=== PATIENT | female | born 1960 | race African-American/Black ===

== ENCOUNTER 2020-01-01 07:11 | Observation (INO) | payer MEDICARE ==
[~2020-01-01] VITALS: Ht 154.9 cm; Wt 78.9 kg
[~2020-01-01 07:11] MED LIST: ASPIRIN81 MG PO; LOSARTAN POTAS100 MG PO; METOPROLOL SUCC50 MG PO; MOBIC7.5 MG PO
[2020-01-01] MEDS ORDERED: DEXAMETHASONE SOD PHOS 10 MG/1 ML VIAL ONE (07:43)
[2020-01-01] MEDS ORDERED: CELECOXIB 200 MG CAP ONE (07:43)
[2020-01-01] MEDS ORDERED: CEFAZOLIN SOD 1 GM/NS 50ML 100 ML IV ONE (07:44)
[2020-01-01] MEDS ORDERED: GABAPENTIN 300 MG CAP ONE (07:44)
[2020-01-01] MEDS ORDERED: ROPIVACAINE 246.25 MG, EPINEPHRINE HCL 1:1000 1ML 0.5 MG, CLONIDINE HCL 0.08 MG, KETORO... INJ ONE ×5 (08:00)
[2020-01-01] MEDS ORDERED: TRANEXAMIC ACID 1,000 MG/10 ML ML ONE (08:26)
[2020-01-01] MEDS ORDERED: SODIUM CHLORIDE 0.9% 500ML 500 ML ONE (08:26)
[2020-01-01] MEDS ORDERED: VANCOMYCIN HCL 1,000 MG ONE (08:26)
[2020-01-01] MEDS ORDERED: HYDROCODONE/APAP 7.5MG-325MG 1 EA TAB PO PRN (10:30)
[2020-01-01] MEDS ORDERED: DIPHENHYDRAMINE HCL INJ 50 MG/ML VIAL IV PRN (10:30)
[2020-01-01] MEDS ORDERED: ACETAMINOPHEN 650 MG SUPP PR PRN (10:30)
[2020-01-01] MEDS ORDERED: KETOROLAC TROMETHAMINE 30 MG/ML VIAL IV PRN (10:30)
[2020-01-01] MEDS ORDERED: DOCUSATE SODIUM 100 MG CAP PO PRN (10:30)
--- NOTE | 2020-01-01 10:55 | Operative Report ---
DATE OF PROCEDURE: 01/01/2020 SURGEON: Pedrito Garcia MD ELECTRON BE[employer] PH[employer] MASK MAKER: Oumar Woodruff PA-C PREOPERATIVE DIAGNOSIS: Osteoarthritis, right knee. POSTOPERATIVE DIAGNOSIS: Osteoarthritis, right knee. PROCEDURE: Right total knee arthroplasty. INDICATIONS: The patient is a 59-year-old lady, who has end-stage arthritis of her right knee. She has failed conservative management and would like to proceed with a right total knee replacement. The risks and benefits of the procedure have been explained. All of her questions have been answered. She states she understands and wishes to proceed. PROCEDURE IN DETAIL: The patient was brought to the operating room and placed under general anesthetic. She received prophylactic antibiotics, tranexamic acid, and a regional block in the holding area. Her right lower extremity was prepped and draped in a sterile manner. A preoperative time-out was performed. The extremity was exsanguinated and a proximal tourniquet was inflated to 300 mmHg. An anterior incision with a medial parapatellar arthrotomy was performed. Clear synovial fluid was removed from the joint. Soft tissue releases were performed to bring the knee up into flexion with the patella everted. The cruciate ligaments, marginal osteophytes and meniscal remnants were removed. She had significant pronounced medial compartment osteophytosis. The patient also was noted preoperatively to have a fairly lax knee. We attempted to resect this little bone as possible. An extramedullary cutting guide was used to resect the proximal tibia. The tibial base plate was a size D. The central fin punch was drilled and impacted and attention was directed towards the distal femur. An intramedullary cutting guide was used to resect the distal femur in 5 degrees of valgus and rotation referencing off a combination of landmarks including Whitesides line, the epicondylar axis, and the posterior condyles. The femoral component was a size 6. The anterior and posterior cuts were made. The significant posterior osteophytes were carefully removed. Trial reductions were performed. Even with minimal resection, the knee remained quite loose. I ended up using a 12 mm medial congruent tibial base plate. This provided appropriate soft tissue balancing in full extension and 90 degrees of flexion. The patella was resurfaced with a 29 mm patellar button. The thickness was checked before and after and was right around 19 mm. Patellar tracking was concentric. The trial implants were then all removed. A 100 mL premixed pericapsular ALMA ROSA injection was placed into the surrounding soft tissue. The knee was thoroughly irrigated with a shower tip pulsatile lavage. Bone cuts had been irrigated with a spray mixture of diluted polymyxin and vancomycin spray. The components were cemented into place using a single mix of high viscosity Biomet cement preloaded with antibiotics. Care was taken to remove all extravasated cement. The wound was further irrigated while the cement cured. The arthrotomy was then carefully closed with interrupted #1 Ethibond. The knee was put through flexion and extension to ensure a secure closure. The skin was carefully closed with subcuticular Vicryl and dick. Her skin was thin. A sterile Aquacel bandage was applied. An Sukhwinder wrap was applied. The patient was extubated and transported to the recovery room in stable condition. Blood loss was minimal. All needle and sponge counts were correct. Pedrito Garcia MD DR/NIK /[id number]
--- NOTE | 2020-01-01 11:03 | Diagnostic Imaging Report ---
X-ray right knee History: Postoperative Comparison: None Findings: Right knee 2 views showing postoperative changes of tibiofemoral total knee arthroplasty with the orthopedic hardware in near anatomic alignment. Other postoperative changes such as surgical dick, soft tissue swelling and soft tissue air also noted. Impression:. Signed by: Camilo Hampton MD on 01/01/2020 10:59 AM
--- NOTE | 2020-01-01 11:33 | NUR ---
Patient arrived on the floor via stretcher from PACU. Pt groggy from sedation but easy to arouse. Pt assisted with the transfer from stretcher to bed. Bed in its lowest position. Pt denies pain 0/10. R knee dressing clean, dry, and intact.
[2020-01-01 11:35] VITALS: BP 148/87
[2020-01-01 11:48] VITALS: BP 148/87
[2020-01-01] MEDS ORDERED: FENTANYL CITRATE/PF 100MCG/2 ML INJ ONE (11:49)
[2020-01-01] MEDS ORDERED: MIDAZOLAM HCL 2 MG/2 ML VIAL ONE (11:49)
[2020-01-01 12:17] VITALS: BP 148/87
[2020-01-01 12:22] LABS: BASOPHILS % 0.2 % (0.0-1.0); HEMATOCRIT 35.5 % (34.2-44.1); HEMOGLOBIN 10.6 g/dL (12.0-16.0); LYMPHOCYTES # (AUTO) 0.8 (1.0-3.2); LYMPHOCYTES % 8.4 % (18.0-39.1); MEAN CORPUSCULAR HEMOGLOBIN 22.7 pg (28-32); MEAN CORPUSCULAR HGB CONC 29.9 g/dL (31-35); MEAN CORPUSCULAR VOLUME 76.2 fL (81-99); MONOCYTES # (AUTO) 0.1 (0.2-0.8); MONOCYTES % 1.1 % (4.4-11.3); NEUTROPHILS # (AUTO) 8.2 (2.1-6.9); NEUTROPHILS % 89.8 % (38.7-80.0); PLATELET COUNT 201 x10e3/uL (140-360); RED BLOOD COUNT 4.66 x10e6/uL (3.6-5.1); RED CELL DISTRIBUTION WIDTH 17.2 % (11.7-14.4)
[2020-01-01] MEDS ORDERED: EPHEDRINE SULFATE INJ 50 MG/ML VIAL ONE (12:34)
[2020-01-01] MEDS ORDERED: LIDOCAINE HCL 2% LOCAL INJ 5 ML SDV VIAL INJ ONE (12:34)
[2020-01-01] MEDS ORDERED: ONDANSETRON HCL INJ 2MG/ML 2ML 2 MG/ML VIAL ONE (12:34)
[2020-01-01] MEDS ORDERED: DEXAMETHASONE SOD PHOS INJ 4 MG/ML VIAL ONE (12:34)
[2020-01-01] MEDS ORDERED: SEVOFLURANE INHAL SOLN 250 ML PEN BTL ONE (12:34)
[2020-01-01] MEDS ORDERED: PROPOFOL IV EMULSION 10 MG/ML 20 ML VIAL ONE (12:34)
[2020-01-01 12:40] LABS: BLOOD UREA NITROGEN 11 mg/dL (7-26); BUN/CREATININE RATIO 15 (6-25); CALCIUM 8.4 mg/dL (8.4-10.2); CARBON DIOXIDE 26 mmol/L (22-29); CHLORIDE 105 mmol/L (98-107); CREATININE, SERUM 0.75 mg/dL (0.57-1.11); EST GLOMERULAR FILTRATION RATE > 60 ML/MIN (60-); GLUCOSE 190 mg/dL (74-118); SODIUM 140 mmol/L (136-145)
[2020-01-01] MEDS: SODIUM CHLORIDE 0.9% 1000ML 1,000 ML IV SCH ×2 (12:42→20:40)
[2020-01-01] MEDS ORDERED: ACETAMINOPHEN 1000 MG/100 ML IV PRN (14:00)
[2020-01-01] MEDS: ONDANSETRON HCL INJ 2MG/ML 2ML 2 MG/ML VIAL IV PRN ×2 (15:07→20:40)
--- NOTE | 2020-01-01 15:25 | NUR ---
DR HAWKINS OFFICE PREARRANGED FOLLOWING DISCHARGE PLAN OF: [place] [id number] [place] [address] [id number] [facility] WITH [facility] CONFIRMED WITH APRIL [phone] SAMANTHA 3 IN ONE COMMODE AND CPM PROVIDED BY [facility] [phone] I PROVIDED ROLLING WALKER WITH WHEELS FOR DISCHARGE OBTAINED SIGNATURES AND WILL FILE IN PACU
[2020-01-01 16:00] VITALS: BP 139/88
[2020-01-01] MEDS: CELECOXIB 100 MG CAP PO SCH (17:05)
[2020-01-01] MEDS: CEFAZOLIN SOD 1 GM/NS 50ML 50 ML IV SCH (17:05)
[2020-01-01] MEDS: ASPIRIN 325 MG TAB PO SCH (17:05)
[2020-01-01] MEDS: HYDROCODONE/APAP 5MG-325MG TAB PO PRN ×2 (17:07→20:40)
[2020-01-01] MEDS ORDERED: ROPIVACAINE 0.5% 5 MG/ML 30 ML SDV ONE (17:29)
--- NOTE | 2020-01-01 19:00 | NUR ---
Report given to on coming nurse. Pt lying in bed, semi-fowlers position, and no apparent distress. Pt denies pain 0/10. Bed in its lowest position. CPM machine operating at 50.
[2020-01-01 20:00] VITALS: BP 112/72
[2020-01-01 21:00] VITALS: BP 112/72
[2020-01-01] MEDS ORDERED: ZOLPIDEM TARTRATE 5 MG TAB PO PRN (21:00)
[2020-01-02] VITALS: BP 107/69
[2020-01-02] MEDS: CEFAZOLIN SOD 1 GM/NS 50ML 50 ML IV SCH ×2 (00:27→09:04)
[2020-01-02 00:52] VITALS: BP 112/72
[2020-01-02 04:00] VITALS: BP 118/73
[2020-01-02] MEDS: HYDROCODONE/APAP 5MG-325MG TAB PO PRN ×3 (04:50→13:08)
--- NOTE | 2020-01-02 05:11 | NUR ---
Pt had cpm back on at this time, tolerating well. pain med given prior to cpm. call light within reach. bed in low position and locked. no needs at this time.
--- NOTE | 2020-01-02 06:03 | Consultation ---
DATE OF CONSULTATION: 01/02/2020 REASON FOR CONSULTATION: Postop medical management. HISTORY OF PRESENT ILLNESS: The patient is a 59-year-old lady, who is status post right total knee arthroplasty, who is doing well postoperatively with some complaints of right knee pain, but denies any chest pain, fever, chills, nausea, vomiting, headache, shortness of breath, or dizziness on review of systems. PAST MEDICAL HISTORY: Significant for arthritis, history of breast cancer, hypertension, hyperlipidemia. MEDICATIONS: See MAR. ALLERGIES: CODEINE AND MORPHINE. SOCIAL HISTORY: She is a retired, single, nonsmoker, nondrinker. FAMILY HISTORY: Hypertension. PHYSICAL EXAMINATION: VITAL SIGNS: Temperature 97.5, pulse 87, blood pressure 112/72, sats 100% on room air. GENERAL: In no apparent distress, lying in bed. NECK: Supple. No lymphadenopathy. CARDIOVASCULAR: Regular rate and rhythm. LUNGS: Clear to auscultation bilaterally. ABDOMEN: Good bowel sounds. Soft, nontender. EXTREMITIES: No clubbing, cyanosis. NEUROLOGIC: Nonfocal. Right knee is bandaged with no seepage. ASSESSMENT AND PLAN: 1. Right knee pain. Continue with postoperative care and continue with pain management and start physical therapy. 2. Elevated sugars. The patient states no history of diabetes. We will continue to monitor. 3. Hypertension. We will restart her home medicines. Monitor her blood pressure. 4. Anemia. We will check a CBC. 5. Hyperlipidemia. The patient is to resume her cholesterol medicine upon discharge. Please see hospital chart for full details. MD GHAZALA Herrera/NIK /[id number]
[2020-01-02] MEDS: SODIUM CHLORIDE 0.9% 1000ML 1,000 ML IV SCH (06:31)
[2020-01-02 06:52] LABS: HEMATOCRIT 31.3 % (34.2-44.1); HEMOGLOBIN 9.6 g/dL (12.0-16.0)
--- NOTE | 2020-01-02 07:00 | NUR ---
Received report from off going nurse. Pt lying in bed and is on CMP. Pt denies pain 0/10. Bed in lowest position.
[2020-01-02 07:58] VITALS: BP 143/90
[2020-01-02 08:20] VITALS: BP 143/90
[2020-01-02] MEDS ORDERED: METOPROLOL SUCCINATE 50 MG TAB XL PO SCH (09:00)
[2020-01-02] MEDS ORDERED: LOSARTAN POTASSIUM 25 MG TAB PO SCH (09:00)
[2020-01-02] MEDS: ASPIRIN 325 MG TAB PO SCH (09:01)
[2020-01-02] MEDS: CELECOXIB 100 MG CAP PO SCH (09:01)
[2020-01-02] MEDS: ONDANSETRON HCL INJ 2MG/ML 2ML 2 MG/ML VIAL IV PRN (09:11)
[2020-01-02 11:45] VITALS: BP 145/83
[2020-01-02] MEDS ORDERED: ONDANSETRON HCL 4 MG ORAL DISINTEGRATING TAB PO PRN (13:00)
--- NOTE | 2020-01-02 14:12 | NUR ---
IV removed at 1400; pt tolerated well. IV: no redness, no infiltration, no S/S of infection, and cath intact. Pt off floor at 1412 via a wheelchair for home. Pt in no apparent distress. Pain 1/10 is tolerable and no intervention required.
== END 2020-01-02 14:10 | disposition home or self-care (01) ==
LOC: OR 07:11 → PACU V 10:25 → MED/SURG 11:35
PROVIDERS: ADMIT Specialist; ATTEND Specialist
DX: M17.0 Bilateral primary osteoarthritis of knee (principal); Z01.818 Encounter for other preprocedural examination; Z20.828 Contact with and (suspected) exposure to other viral communicable diseases; G47.33 Obstructive sleep apnea (adult) (pediatric); E89.1 Postprocedural hypoinsulinemia; D64.9 Anemia, unspecified; I10 Essential (primary) hypertension; E78.5 Hyperlipidemia, unspecified
CPT/HCPCS: 27447; 36415 ×2; 73560; 80048; 82948; 85014; 85018; 85025; 86850; 86900; 86920; 97116; 97161; 97530 ×2; C1713; C1776 ×3; G0378 ×2; J0131; J0171; J0690 ×2; J1100 ×2; J1885 ×2; J2001; J2250; J2405 ×2; J2704; J2795; J3010; J3370; J7030; J7040; U0002

== ENCOUNTER → 2020-09-17 | Outpatient (CLI) | payer MEDICARE ==
[2020-09-17 12:32] LABS: BASOPHILS % 0.5 % (0.0-1.0); EOSINOPHILS % 0.5 % (0.0-6.0); HEMATOCRIT 33.3 % (34.2-44.1); HEMOGLOBIN 10.3 g/dL (12.0-16.0); LYMPHOCYTES # (AUTO) 2.4 (1.0-3.2); LYMPHOCYTES % 40.8 % (18.0-39.1); MEAN CORPUSCULAR HEMOGLOBIN 22.4 pg (28-32); MEAN CORPUSCULAR HGB CONC 30.9 g/dL (31-35); MEAN CORPUSCULAR VOLUME 72.5 fL (81-99); MONOCYTES # (AUTO) 0.5 (0.2-0.8); MONOCYTES % 9.3 % (4.4-11.3); NEUTROPHILS # (AUTO) 2.8 (2.1-6.9); NEUTROPHILS % 48.7 % (38.7-80.0); PLATELET COUNT 228 x10e3/uL (140-360); RED BLOOD COUNT 4.59 x10e6/uL (3.6-5.1); RED CELL DISTRIBUTION WIDTH 17.9 % (11.7-14.4)
== END ==
LOC: DX 11:54
PROVIDERS: ATTEND Family Medicine
DX: Z45.2 Encounter for adjustment and management of vascular access device (principal); M89.9 Disorder of bone, unspecified
CPT/HCPCS: 36415; 36569; 71045; 85025

== ENCOUNTER → 2022-04-14 | Day surgery (SDC) | payer MEDICARE ==
[~2022-04-14] MED LIST changes: +APRISO0.375 GM PO; +FEROSUL325 MG PO; +LIDOCAINE HCL 2% LOCAL INJ 5 ML SDV VIAL INJ ONE; +PHENYLEPHRINE HCL 1% 10 MG/ML VIAL ONE; +PROPOFOL IV EMULSION 10 MG/ML 20 ML VIAL ONE; +SIMETHICONE 40 MG/0.6 ML BTL ONE; +STOOL SOFTENER1 EACH; +TURMERIC 450-51 EACH; +VITAMIN D3250 MCG
[2022-04-14 10:10] VITALS: BP 146/94
== END | disposition home or self-care (01) ==
LOC: OR 07:25
PROVIDERS: ATTEND Internal Medicine Gastroenterology
DX: K52.9 Noninfective gastroenteritis and colitis, unspecified (principal); D12.4 Benign neoplasm of descending colon; K57.30 Diverticulosis of large intestine without perforation or abscess without bleeding; K62.89 Other specified diseases of anus and rectum; K64.8 Other hemorrhoids; K59.00 Constipation, unspecified; D64.9 Anemia, unspecified; I10 Essential (primary) hypertension; E78.5 Hyperlipidemia, unspecified; Z88.6 Allergy status to analgesic agent; Z79.899 Other long term (current) drug therapy; Z68.35 Body mass index [BMI] 35.0-35.9, adult; Z85.3 Personal history of malignant neoplasm of breast; Z92.21 Personal history of antineoplastic chemotherapy; Z92.3 Personal history of irradiation
CPT/HCPCS: 45380; 45384; 88305; J2001; J2370; J2704; 45378